=== PATIENT | female | born 1990 ===

== ENCOUNTER 2020-08-21 00:06 | Inpatient (IN) | payer OTHER ==
[~2020-08-21] VITALS: Ht 157.5 cm; Wt 76.7 kg
[2020-08-21] MEDS ORDERED: VITAFOL-OB+DHA1 EACH PO (01:11)
--- NOTE | 2020-08-21 09:12 | PR ---
[facility] [address] [facility] [place], [place] [address] Signed Progress Notes IP Datetime Report Generated by CPN: 08/21/2020 09:12 PROGRESS NOTES: [id number] Impression: Normal Progression of Labor Plan: Continue Present Management; Anticipate Vaginal Delivery VITAL SIGNS: [id number] Vital Signs: Reviewed; Within Normal Limits EXAM: [id number] Dilatation: 8.0 Effacement: 95 Station: -1 MEMBRANES: [id number] Membranes Status: Ruptured Comments: 30 yo @ 40 5/7 weeks gestation EIOL GBS pending, see notes re: lab communications s/p cytotec x 1 and AROM - moderate meconium Move to [id number] position, continue close monitoring Anticipate FETUS A: [id number] FHR Baseline: 145 Variability: Moderate 6-25bpm Accelerations: None Decelerations: Late FHR Category: Category II Comments on Fetus A: Intermittent episodes of recurrent late decelerations since epidural FETUS B: [id number] Signing Physician: Gael Avery DO Copies: ~ *Electronically Signed* 08/21/20911 GAEL AVERY DO PATIENT NAME: KELLIE KAUR PROGRESS NOTE DATE OF : 89 PHYSICIAN: GAEL AVEYR DO [facility] #: [id number] REPORT IS CONFIDENTIAL AND NOT TO BE RELEASED WITHOUT AUTHORIZATION
--- NOTE | 2020-08-22 11:03 | PR ---
[facility] [address] [facility] [facility] [place] [place] [address] Signed PP Progress Notes Datetime Report Generated by CPN: 08/22/2020 11:03 SUBJECTIVE: [id number] Pain: Within Normal Limits Nausea/Vomiting: Denies Flatus: Yes Bowel Movement: No Vital Signs: [id number] Vital Signs: Reviewed; Within Normal Limits Cardiovascular: Normal Respiratory: Normal Abdomen/Uterus: Normal Lochia: Normal Breasts: Normal Extremities: Normal Progress: Normal Exam Comments: NAD, standing at bedside, ambulating/ repositioning without difficulty RRR No dyspnea Fundus firm below umbilicus Abdomen soft nontender nondistended No lower extremity edema, negative Darius's BL IMPRESSION/PLAN/PROCEDURES: [id number] Impression: Normal Progression Plan: Continue Present Management Progress Notes: PPD#1 s/p GBS still pending, anticipate observing baby x 48 unless negative GBS result Progressing well : ambulating, voiding, tolerating regular diet without difficulty Planning condoms for contraception Signing Physician: Gael Avery DO Copies: ~ *Electronically Signed* 08/22/20 1103 GAEL AVERY DO PATIENT NAME: KELLIE KAUR PROGRESS NOTE DATE OF : 89 PHYSICIAN: GAEL AVERY #: [id number] REPORT IS CONFIDENTIAL AND NOT TO BE RELEASED WITHOUT AUTHORIZATION
--- NOTE | 2020-08-23 10:45 | PR ---
[facility] [address] [facility] [place], [place] [address] Signed PP Progress Notes Datetime Report Generated by CPN: 08/23/2020 10:45 SUBJECTIVE: [id number] Pain: Within Normal Limits Nausea/Vomiting: Denies Flatus: Yes Bowel Movement: No Vital Signs: [id number] Vital Signs: Reviewed; Within Normal Limits Cardiovascular: Normal Respiratory: Normal Abdomen/Uterus: Normal Lochia: Normal Vulva/Perineum: Normal Breasts: Normal CVA Tenderness: Normal Extremities: Normal Progress: Normal Exam Comments: NAD, sitting up in bed RRR No dyspnea abd SNTND FFBU Extremities without edema IMPRESSION/PLAN/PROCEDURES: [id number] Impression: Normal Progression Plan: Continue Present Management; Discharge Progress Notes: PPD#2 s/p uncomplicated delivery Requesting DC to home, milestones met Signing Physician: Gael Avery DO Copies: ~ *Electronically Signed* 08/23/20 1045 GAEL AVERY DO PATIENT NAME: KELLIE KAUR ALINA PROGRESS NOTE DATE OF : 92 PHYSICIAN: GAEL AVERY DO [facility] #: [id number] REPORT IS CONFIDENTIAL AND NOT TO BE RELEASED WITHOUT AUTHORIZATION
== END 2020-08-23 11:15 | disposition home or self-care (01) | DRG 807 ==
LOC: FBC 00:06
PROVIDERS: ADMIT Obstetrics & Gynecology; ATTEND Obstetrics & Gynecology
PROC: 10E0XZZ Delivery of Products of Conception, External Approach (ICD-10-PCS; principal; 2020-08-21)
PROC: 10907ZC Drainage of Amniotic Fluid, Therapeutic from Products of Conception, Via Natural or Artificial Opening (ICD-10-PCS; 2020-08-21)
PROC: 3E0P7VZ Introduction of Hormone into Female Reproductive, Via Natural or Artificial Opening (ICD-10-PCS; 2020-08-21)
PROC: 00HU33Z Insertion of Infusion Device into Spinal Canal, Percutaneous Approach (ICD-10-PCS; 2020-08-21)
PROC: 3E0R3BZ Introduction of Anesthetic Agent into Spinal Canal, Percutaneous Approach (ICD-10-PCS; 2020-08-21)
DX: O48.0 Post-term pregnancy (principal); Z37.0 Single live birth; Z3A.40 40 weeks gestation of pregnancy; O76 Abnormality in fetal heart rate and rhythm complicating labor and delivery; O77.0 Labor and delivery complicated by meconium in amniotic fluid; O69.1XX0 Labor and delivery complicated by cord around neck, with compression, not applicable or unspecified
CPT/HCPCS: 01960; 36415; 82803; 85027; J2590; J2795; J3010; J7121